=== PATIENT | female | born 1985 | race African-American/Black ===

== ENCOUNTER 2017-07-30 15:03 | Outpatient (CLI) | payer MEDICAID ==
[~2017-07-30 15:03] MED LIST: FERRIC CARBOXYMALTOSE 750 MG in NORMAL SALINE 250 ML IV PRN; NORMAL SALINE 250 ML IV PRN
[2017-07-30 15:45] VITALS: BP 130/67
== END 2017-07-30 16:40 | disposition home or self-care (01) ==
LOC: II 15:03 → 5TH 15:38 → II 16:40
PROVIDERS: ATTEND Internal Medicine
PROC: 3E033GC Introduction of Other Therapeutic Substance into Peripheral Vein, Percutaneous Approach (ICD-10-PCS; principal; 2017-07-30)
DX: D50.0 Iron deficiency anemia secondary to blood loss (chronic) (principal); N92.0 Excessive and frequent menstruation with regular cycle
CPT/HCPCS: 96367; J7050; J1439; 96374

== ENCOUNTER 2017-08-06 14:57 | Outpatient (CLI) | payer MEDICAID ==
[2017-08-06 16:13] VITALS: BP 136/77
== END 2017-08-06 16:15 | disposition home or self-care (01) ==
LOC: II 14:57 → 5TH 15:12 → II 16:15
PROVIDERS: ATTEND Internal Medicine
PROC: 3E033GC Introduction of Other Therapeutic Substance into Peripheral Vein, Percutaneous Approach (ICD-10-PCS; principal; 2017-08-06)
DX: D50.0 Iron deficiency anemia secondary to blood loss (chronic) (principal); N92.0 Excessive and frequent menstruation with regular cycle
CPT/HCPCS: 96365; J7050; J1439; 96367